=== PATIENT | male | born 1975 | race Caucasian/White ===

== ENCOUNTER 2025-03-09 08:36 | Outpatient (CLI) | payer OTHER, SELFPAY ==
--- NOTE | ~2025-03-09 | XR_ITS ---
EXAMINATION: XR fl inj shoulder LT - MR/CT DATE: 03/09/2025 09:45 INDICATION: Unspecified left shoulder injury TECHNIQUE: A time-out was performed to verify the patient's name, date of , and procedure to b e performed. The procedure including the risks, benefits, and alternatives was discussed with the pat ient. Risks discussed included bleeding and infection. The patient understood the risks and agreed to proceed. The skin overlying the rotator cuff interval the left glenohumeral joint was prepped and d raped in usual sterile fashion. Anesthetic was administered with 1% lidocaine subcutaneously. A 22 G needle was advanced under fluoroscopic guidance into the joint. Injection of 1 mL of Omnipaque 240 confirmed intra-articular position of the needle. Subsequently, injectate consisting of 12 mL of 2: 1:1 mixture of sterile saline:Omnipaque 240:1% lidocaine mixed 200:1 with 529 mg/mL Multihance gadoli nium contrast was instilled with intra-articular position confirmed with intermittent fluoroscopy. T he needle was removed and the entry site was cleaned and dressed. There were no immediate complicati ons. Fluoroscopy exposure time was 0.2 minutes. The total number of images was 92. Total DAP was 0.58 4 Gycm^2. FINDINGS: Real-time fluoroscopy demonstrates the needle and contrast in the left glenohumeral joint. IMPRESSION: 1. Successful left glenohumeral joint injection of a dilute gadolinium contrast mixture for subsequen t MRI arthrogram which will be dictated separately. Reviewed, dictated and finalized at location A. IMPRESSION: 1. Successful left glenohumeral joint injection of a dilute gadolinium contrast mixture for subsequent MRI arthrogram which will be dictated separately.
--- NOTE | ~2025-03-09 | MR_ITS ---
EXAMINATION: MR shoulder LT w con DATE: 03/09/2025 10:37 INDICATION: Unspecified left shoulder and upper arm injury. TECHNIQUE: Magnetic resonance imaging (MRI) of the left shoulder was performed following intra-artic ular gadolinium contrast injection and without intravenous contrast. Details of the glenohumeral join t injection have been dictated separately. Sequences included axial T2-weighted FS FSE, axial T1-richelle ghted FS FSE, coronal oblique T1-weighted FS FSE, coronal oblique T2-weighted FSE, sagittal T2-weight ed FS FSE, sagittal T1-weighted FSE, and ABER (abduction external rotation) T1-weighted FS FSE. COMPARISON: None. FINDINGS: Coracoacromial arch: The acromion undersurface is minimally curved in morphology (type I-II). The coracoacromial ligament is normal. Change of prior distal clavicle resection. Rotator cuff: The supraspinatus, infraspinatus and teres minor are normal. The subscapularis is normal. Normal rota tor cuff muscle bulk and signal. Biceps tendon, glenoid labrum and glenohumeral cartilage: Long head of the biceps tendon is intact. There is irregular degenerative tearing posterior labrum ex tending from the 10:30 position posterior superiorly to the 4:30 position anteriorly. Mild glenohumer al osteoarthritis with deep chondral ulceration involving greater than 50% of the cartilage thickness but without degenerative subchondral changes along the posterior margin of the glenoid. Mild glenoid hypoplasia with some sloping along the posterior rim of the glenoid. There is an additional 1 cm geeta meter region of deep chondral ulceration also without degenerative subchondral changes at the superom edial aspect of the humeral head. Bones and other: Normal marrow signal with no edema, fracture or abnormal marrow replacing process. Small amount of fl uid in the subacromial/subdeltoid bursa consistent with mild bursitis. IMPRESSION: 1. Mild glenohumeral osteoarthritis with regions of moderate grade chondromalacia along the superomed ial humeral head and along the posterior margin of the glenoid. 2. Degenerative tearing along the posterior superior, posterior to inferior glenoid labrum. 3. Mild subacromial/subdeltoid bursitis. Reviewed, dictated and finalized at location A. IMPRESSION: 1. Mild glenohumeral osteoarthritis with regions of moderate grade chondromalac ia along the superomedial humeral head and along the posterior margin of the gl enoid. 2. Degenerative tearing along the posterior superior, posterior to inferior gle noid labrum. 3. Mild subacromial/subdeltoid bursitis.
== END 2025-03-09 08:37 | disposition home or self-care (01) ==
LOC: ANHIMG 08:40
PROVIDERS: PCP Family Medicine; Visit Provider Orthopaedic Surgery
DX: S43.432A Superior glenoid labrum lesion of left shoulder, initial encounter (principal); M19.012 Primary osteoarthritis, left shoulder; M75.52 Bursitis of left shoulder; X58.XXXA Exposure to other specified factors, initial encounter
CPT/HCPCS: 23350; 73222; A9577; Q9966